=== PATIENT | female | born 1970 | race Caucasian/White ===

== ENCOUNTER 2019-03-23 00:19 | Inpatient (IN) ==
--- NOTE | 2019-03-23 00:36 | Emergency Department Note ---
ED Disposition Clinical Impression: Acute coronary syndrome Disposition: Still a Patient Condition on Discharge: Serious - Critical Care Critical Care Time: Yes Attestation: On 03/23/19, the high probability of a clinically significant, sudden or life threatening deterioration of the following system(s) required my full and direct attention, intervention and personal management. The time I documented below is in addition to time spent performing reported procedures but includes the following listed in this critical care notation. Total Critical Care Time: 40 Vital system(s) involved:: Circulatory Failure My critical care processes included: Assessment & monitoring of V/S, Initial and Re-exams, Data Review/Interpretation, Coordinating Care, Medication Orders and management, Documentation Medical Decision Making - Presley Inquiry Pt receiving controlled substance: No Vital Signs: 03/23/19 00:20 03/23/19 01:01 03/23/19 02:00 Pulse Rate [Right Brachial] 82 93 H 82 Respiratory Rate 18 18 20 Blood Pressure [Right Arm] 165/91 H 132/94 H 130/80 Blood Pressure Mean [Right Arm] 115 106 96 Blood Pressure Source [Right Arm] Automatic Cuff Automatic Cuff Automatic Cuff Blood Pressure Position [Right Arm] Sitting Sitting 02 Sat by Pulse Oximetry 98 97 99 Oxygen Delivery Method Room Air Room Air Room Air - Lab Data Lab Results 03/23/19 00:23: WBC 9.7, RBC 4.89, Hgb 13.9, Hct 44.8, MCV 91.6, MCH 28.4, MCHC 31.0 L, RDW 14.2, Plt Count 491 H, MPV 7.3 L, Neut % (Auto) 57.4, Lymph % (Auto) 33.0, [place] % (Auto) 5.7, Eos % (Auto) 3.3, Baso % (Auto) 0.8, Neut # (Auto) 5.6, Lymph # (Auto) 3.2, [place] # (Auto) 0.6, Eos # (Auto) 0.3, Baso # (Auto) 0.1 03/23/19 00:23: Sodium 142, Potassium 3.6, Chloride 104, Carbon Dioxide 30, Anion Gap 11.6, BUN 10, Creatinine 0.72, Estimated Creat Clear 86, Estimated GFR 86, Est GFR ( Amer) 105, Glucose 118 H, Calcium 9.0, Troponin I 0.26 H Result diagrams: 03/23/19 00:23 03/23/19 00:23 Orders (Tests/Meds): ED MEDICATIONS Generic Name Dose Route Start Last Admin Trade Name Freq PRN Reason Stop Dose Admin Diphenhydramine HCl 50 mg 03/23/19 02:40 Benadryl 50mg/1ml Vial IV 03/23/19 02:41 ONCE ONE Fentanyl Citrate 25 mcg 03/23/19 02:40 Fentanyl 100mcg/2ml Vial IV 03/24/19 02:41 Q3MINP PRN Moderate to Severe Pain Fentanyl Citrate 50 mcg 03/23/19 02:40 Fentanyl 100mcg/2ml Vial IV 03/24/19 02:41 Q3MINP PRN Moderate to Severe Pain Fentanyl Citrate 25 mcg 03/23/19 02:40 Fentanyl 250mcg/5ml Vial IV 03/24/19 02:40 Q3MINP PRN Moderate to Severe Pain Fentanyl Citrate 50 mcg 03/23/19 02:40 Fentanyl 250mcg/5ml Vial IV 03/24/19 02:40 Q3MINP PRN Moderate to Severe Pain Flumazenil 0.2 mg 03/23/19 02:40 Romazicon 0.1mg/Ml 5ml Vial IV 03/23/19 23:00 NEEDED PRN Sedation Heparin Sodium (Porcine) 10,000 unit 03/23/19 02:40 Heparin 1,000 Units/Ml 10ml Vial (Dispatcher Ship Pilot) IV 03/23/19 06:40 NEEDED PRN Emergency Box Optical Instrument Assembler Heparin Sodium/Sodium Chloride 3,000 unit 03/23/19 02:40 Heparin 1000 Units/500ml Ns (Dispatcher Ship Pilot) IV 03/23/19 02:41 ONCE ONE Sodium Chloride 1,000 mls @ 25 mls/hr 03/23/19 02:45 Sod Chlor 0.9% 1000ml Bag IV 03/24/19 02:40 .Q25H JANES Midazolam HCl 1 mg 03/23/19 02:40 Midazolam 2mg/2ml Vial IV 03/24/19 02:40 Q3MINP PRN Sedation Midazolam HCl 1 mg 03/23/19 02:40 Midazolam 1mg/Ml 5ml Vial IV 03/24/19 02:40 Q3MINP PRN Sedation Naloxone HCl 0.4 mg 03/23/19 02:40 Narcan 0.4mg/Ml Vial IV 03/24/19 02:40 Q5MINP PRN Decreased Respirations Nitroglycerin 800 mcg 03/23/19 02:40 Nitroglycerin 800mcg/8ml Syr (Dispatcher Ship Pilot) IV 03/24/19 02:40 NEEDED PRN Emergency Box Optical Instrument Assembler Verapamil HCl 2.5 mg 03/23/19 02:40 Verapamil 2.5mg/Ml 2ml Vial IV 03/23/19 02:41 ONCE ONE Discontinued Medications Generic Name Dose Route Start Last Admin Trade Name Najma PRN Reason Stop Dose Admin Aspirin 324 mg 03/23/19 00:33 03/23/19 00:38 Aspirin 81mg Chewable Tablet PO 03/23/19 00:34 324 mg ONCE ONE Administration Enoxaparin Sodium 60 mg 03/23/19 01:22 03/23/19 01:29 Lovenox 60mg/0.6ml Syringe SQ 03/23/19 01:23 60 mg ONCE ONE Administration Metoprolol Tartrate 25 mg 03/23/19 01:21 03/23/19 01:28 Lopressor 50mg Tablet PO 03/23/19 01:22 25 mg ONCE ONE Administration Morphine Sulfate 4 mg 03/23/19 01:23 03/23/19 01:29 Morphine 4mg/Ml Syringe IV 03/23/19 01:24 4 mg ONCE ONE Administration Nitroglycerin 0.4 mg 03/23/19 00:33 03/23/19 00:37 Nitrostat 0.4mg Sl Tablet SL 03/23/19 00:34 0.4 mg ONCE ONE Administration Nitroglycerin 1 gm 03/23/19 01:15 03/23/19 02:18 Nitroglycerin 1 Inch Oint Udp TD 03/23/19 01:16 Not Given ONCE ONE Nitroglycerin 0.4 mg 03/23/19 01:34 03/23/19 01:34 Nitrostat 0.4mg Sl Tablet SL 03/23/19 01:35 1 tab ONCE ONE Administration Ondansetron HCl 4 mg 03/23/19 01:24 03/23/19 01:30 Zofran 4mg/2ml Vial IV 03/23/19 01:25 4 mg ONCE ONE Administration Ticagrelor 180 mg 03/23/19 01:22 03/23/19 01:29 Brilinta 90mg Tablet PO 12/29/19 01:23 180 mg ONCE ONE Administration ORDERS Category Date Time Status XR chest 2V Stat Exams 03/23/19 00:27 Taken Troponin I Q3H Lab 03/23/19 03:30 Ordered Troponin I Q3H Lab 03/23/19 06:30 Ordered ECG Request by /Nse Stat Y 03/23/19 00:27 Ordered - Radiology Data #1 Image(s): Chest Image Reviewed: Yes I reviewed the patient's radiology image Preliminary Findings: Normal/NAD - ECG Data Tracing #1 EKG interpreted by Michael Cerrato MD: Rhythm: sinus Rate: 83 Adin: normal Ectopy: none Conduction: normal ST Segment Changes: Nonspecific, lead III T Wave Changes: Nonspecific, lead III Q Waves: none No prior EKGs available for comparison. Tracing #2 EKG interpreted by Michael Cerrato MD: Rhythm: sinus Rate: 78 Adin: normal Ectopy: none Conduction: normal ST Segment Changes: Nonspecific, inferior and lateral leads. T Wave Changes: Nonspecific, inferior and lateral leads Q Waves: none Suspicious changes for ischemia now present in inferior and lateral leads - Physician Consults Physician Consulted: Sana Time: 01:10 Reason -: Cardiology Eval/Care Comment/Response: EKG sent to Dr. Hood. Case discussed. Patient has ch anges in lead III on her EKG that are worrisome for ischemia, but only in this one lead. At this time does not meet criteria for STEMI. He requests that patient be given additional nitroglycerin, morphine, Lovenox, Brilinta, and metoprolol tartrate. Call him back after meds given to report on patient's pain level. Additional Consult: Sana Time: 02:10 Reason -: Cardiology Eval/Care Comment/Response: Second EKG sent. Discussed patient's current symptoms. He advises to call in the Dispatcher Ship Pilot team and he will perform a heart cath tonight. Additional Consult: Alberto Time: 02:17 Reason -: Admission - Reevaluation(s) Time: 01:39 Reevaluation #1: Anterior chest pain resolved after first nitroglycerin, but back pain still present, 5/10. Time: 02:10 Reevaluation #3: Pain in back remains 4/10. No anterior chest pain. - ARIELA Score for Non-Stemi Age of Patient: 40-49 years old Heart Rate: 70-89 bpm Systolic Blood Pressure: 160-199 mmHg Serum Creatinine: 0.40-0.79 mg/dl CHF [place] Class: I-No CHF Other Risk Factors: ST Segment Deviation Non-Stemi Risk Score: 76 General Adult HPI - General Chief complaint: Chest Pain Stated complaint: Cp Time Seen by Provider: 03/23/19 00:36 Mode of Arrival: Family Vehicle Limitations: No Limitations Description of Symptoms (Recalled from ER Triage Doc. by RN): Pt c/o cp that st ared last night, she reports that is hurts in her back when she takes a deep breath. NO SOA, or other symptoms reported at this time. - History of Present Illness HPI narrative: Complains of chest and thoracic back pain. She says it started on 03/21/2019 at about noon while she was doing some housework. It lasted for couple of hours and then went away. Pain returned yesterday morning 03/22/2019 and has been present all day long, continuous for approximately 16 hours. Denies shortness of breath, nausea, or diaphoresis. Pain goes into her thoracic back. It worsens when she lays down. She has an sensation in her arms like there is something running into her veins. No jaw pain. No pleuritic component. No leg pain or swelling. She does not have any known heart disease. She is a smoker. She does not have diabetes, hyperlipidemia, or hypertension. No known family history of heart disease. No recent hospitalizations or surgeries. She does not have a primary care provider. - Related Data Home Medications Medication Instructions Recorded Confirmed No Known Home Medications 03/23/19 03/23/19 Allergies Allergy/AdvReac Type Severity Reaction Status Date / Time No Known Allergies Allergy Verified 03/23/19 00:28 [facility] History - Hepatitis A Screen Drug use history?: No High risk sexual behaviors?: No History of sexually transmitted infection?: No Currently employed?: No Childcare worker?: No Do you have indoor plumbing?: Yes Do you have electricity?: Yes Attestation statement:: This patient has been screened for Hepatitis A risk factors. I have reviewed the patient's past medical history: Yes - Social History Smoking Status: Current every day smoker # Packs/Day (cigarettes): 1 Alcohol Intake: never Occupational Status: employed Housing: house ROS Obtained: Yes All systems reviewed & no additional complaints - Constitutional Constitutional: Denies fever(s) - Cardiovascular Cardiovascular: Reports chest pain, Denies diaphoresis, Denies edema, Reports radiating jaw, neck or arm pain - Respiratory Respiratory: No dyspnea, No coughing up blood, No pain on inspiration, No pain with cough - Gastrointestinal Gastrointestingal: Denies: abdominal pain, nausea, vomiting Physical Exam - General General appearance: alert, in no apparent distress - Head Head exam: atraumatic, normocephalic - Eye Eye exam: Present: normal appearance, EOMI - ENT ENT exam: Present: mucous membranes moist - Neck Neck exam: Present: normal inspection, trachea midline - Chest Chest inspection: Present: normal inspection, symmetric chest wall rise - Respiratory Respiratory exam: Present: normal lung sounds bilaterally. Absent: respiratory distress - Cardiovascular Cardiovascular exam: Present: regular rate, normal rhythm, normal heart sounds - Abdominal Exam Abdominal exam: Present: soft, normal bowel sounds. Absent: distention, tenderness, guarding - Extremities Exam Extremities exam: Present: normal inspection, full ROM. Absent: tenderness, calf tenderness - Neurological Exam Neurological exam: Present: alert, oriented X3 - Psychiatric Psychiatric exam: Present: normal affect, normal mood - Skin Skin exam: Present: warm, dry
[2019-03-23 00:52] LABS: Basophils # 0.1 K/mm3 (0-0.2); Basophils % 0.8 % (0.1-2.0); Eosinophils # 0.3 K/mm3 (0.0-0.4); Eosinophils % 3.3 % (0.1-12.0); Hematocrit 44.8 % (37.0-47.0); Hemoglobin 13.9 g/dL (12.2-16.2); Lymphocytes # 3.2 K/mm3 (0.7-4.5); Mean Corpuscular Volume 91.6 fl (81-99); Mean Platelet Volume 7.3 fl (7.4-10.4); Monocytes # 0.6 K/mm3 (0.1-1.0); Monocytes % 5.7 % (1.7-9.3); Neutrophils # 5.6 K/mm3 (1.8-7.8); Neutrophils % 57.4 % (37.0-80.0); Platelet Count 491 K/mm3 (142-424); Red Blood Count 4.89 M/mm3 (4.20-5.40); Red Cell Distribution Width 14.2 % (11.5-17.5); White Blood Count 9.7 K/mm3 (4.8-10.8)
[2019-03-23 01:02] LABS: Anion Gap 11.6 mEq/L (5-15)
--- NOTE | 2019-03-23 11:27 | Pharmacy Consult Notes ---
[facility] Pharmacy VTE Monitoring - Patient Demographics Admission date: 03/23/19 Report Date: 03/23/19 Time: 11:26 Allergies/Adverse Reactions: Patient Allergies No Known Allergies Allergy (Verified 03/23/19 00:28) Height: 1.6 m Weight: 60.923 kg Patient Problems: Current Active Problems Acute coronary syndrome (Acute) - VTE Risk Labs: VTE Related Lab Results Hgb 13.9 g/dL (12.2-16.2) 03/23/19 00:23 Hct 44.8 % (37.0-47.0) 03/23/19 00:23 Plt Count 491 K/mm3 (142-424) H 03/23/19 00:23 BUN 10 mg/dL (7-18) 03/23/19 00:23 Creatinine 0.72 mg/dL (0.55-1.02) 03/23/19 00:23 Estimated Creat Clear 86 mL/min (50-200) 03/23/19 00:23 VTE Score: 2 VTE Risk Level: Moderate Risk - Prophylaxis VTE Prophylaxis Ordered?: Yes Types of VTE Prophylaxis: TEDS Knee High, Pharmacological Location of Applied Device: Bilateral Lower Extremeties Pharmacologic Type: Other (BRILINTA) - VTE Diagnosis Confirmed Treatment or plan recommended: Continue Current Treatment
--- NOTE | 2019-03-23 11:30 | History & Physical Report ---
*Admission Date: 03/23/19 *Chief complaint: Angina *History of present illness: 49-year-old female who presented to the ER due to pain in her chest that radiated to her back. Had occurred initially starting on Sunday but then resolved. She was doing housework when it first occurred but resolved after resting. It recurred again last night prior to presentation and was not resolving so she came to the ER to get assessed. Of note she is a smoker and smokes a pack a day. On assessment in the ER she was found to have an elevation in her troponin and an EKG was obtained showing ST elevation in lead III. Repeat troponin was obtained with a delta from 0.2 to 17. Ceiling Installer was activated and the patient was taken for left heart cath due to ACS. Review of cath report shows that she received 4 drug-eluting stents in multiple vessels correcting most of her occlusions. Still has some small vessel disease that was non-amenable to intervention. Patient was transferred to [facility] for monitoring. On assessment this morning she is still fatigued from anesthesia. Telemetry with occasional PVCs. [facility] History I have reviewed the patient's past medical history: Yes *Have you ever received a pneumonia vaccine?: No *Have you received a flu vaccine this season?: No Other Surgeries: Yes: Cardiac Catheterization, Coronary Stent - *Social History Smoking Status: Current every day smoker Tobacco Type: cigarettes # Packs/Day (cigarettes): 2 Alcohol Intake: former Alcohol Intake Frequency:: other *Occupational Status:: employed Housing: house *Travel in the last 8 weeks: None Family Hx:: Unable to obtain Review of Systems - Review of Systems Review of systems:: pertinent systems reviewed and negative unless documented below Meds Home Medications Medication Instructions Recorded Confirmed Type No Known Home Medications 03/23/19 03/23/19 History Allergies Allergy/AdvReac Type Severity Reaction Status Date / Time No Known Allergies Allergy Verified 03/23/19 00:28 Exam Vital signs and Labs for Last 24 Hours: Temp Pulse Resp BP Pulse Ox 98.6 F 66 15 142/73 H 99 03/23/19 06:59 03/23/19 10:00 03/23/19 10:00 03/23/19 10:00 03/23/19 10:00 Laboratory Results - last 24 hr 03/23/19 00:23: WBC 9.7, RBC 4.89, Hgb 13.9, Hct 44.8, MCV 91.6, MCH 28.4, MCHC 31.0 L, RDW 14.2, Plt Count 491 H, MPV 7.3 L, Neut % (Auto) 57.4, Lymph % (Auto) 33.0, [place] % (Auto) 5.7, Eos % (Auto) 3.3, Baso % (Auto) 0.8, Neut # (Auto) 5.6, Lymph # (Auto) 3.2, [place] # (Auto) 0.6, Eos # (Auto) 0.3, Baso # (Auto) 0.1 03/23/19 00:23: Sodium 142, Potassium 3.6, Chloride 104, Carbon Dioxide 30, Anion Gap 11.6, BUN 10, Creatinine 0.72, Estimated Creat Clear 86, Estimated GFR 86, Est GFR ( Amer) 105, Glucose 118 H, Calcium 9.0, Troponin I 0.26 H 03/23/19 07:18: Troponin I 17.36 H I & O for Last 24 hours: Intake & Output 03/20/19 03/21/19 03/22/19 03/23/19 23:59 23:59 23:59 23:59 Weight 60.923 kg - Constitutional no acute distress, thin - *Routine HEENT Exam Head: Present: normocephalic Eye: Present: EOMI, PERRL ENT: Present: mucous membranes moist - *Routine Neck Exam Present: supple. Absent: lymphadenopathy - *Routine Respiratory Exam Present: CTA bilaterally - *Routine Cardiovascular Exam Present: RRR - *Routine Abdominal Exam Present: soft, normoactive bowel sounds. Absent: tenderness - *Routine Extremities Exam Absent: cyanosis, clubbing, edema - *Routine Skin Exam Present: warm. Absent: rash - *Routine Neurological Exam Present: alert, oriented X3 Assessment and Plan (1) Tobacco use disorder Current visit: Yes Status: Chronic Category: Medical Code(s): F17.200 - Nicotine dependence, unspecified, uncomplicated (2) Acute coronary syndrome Current visit: Yes Status: Acute Category: Medical Code(s): I24.9 - Acute ischemic heart disease, unspecified - Assessment and plan all Dx Assessment and Plan for all problems:: 49-year-old female who presented with STEMI and acute coronary syndrome. Taken emergently to the Ceiling Installer with placement of 4 stents. Initiated on goal- directed therapy with dual antiplatelet therapy and beta-julio. At this time given her blood pressure being softer, will hold on GENNY inhibitor. Started on 40 mg atorvastatin, if tolerates well will increase to maximal dose of high intensity statin. Discussed tobacco cessation and need for stopping smoking as she has extensive history and this is likely an underlying etiology for her coronary artery disease. Using nicotine patches while admitted. Patient additionally has not seen a doctor in over 10 years. Plan for close follow-up at time of discharge with our office and follow-up with cardiology as well. Monitor on telemetry overnight. Long she has no further events, plan for discharge in the morning.
[2019-03-24 06:06] LABS: Basophils # 0.1 K/mm3 (0-0.2); Basophils % 0.5 % (0.1-2.0); Eosinophils # 0.2 K/mm3 (0.0-0.4); Eosinophils % 2.5 % (0.1-12.0); Hematocrit 37.6 % (37.0-47.0); Hemoglobin 11.4 g/dL (12.2-16.2); Lymphocytes # 2.2 K/mm3 (0.7-4.5); Mean Corpuscular HGB Conc 30.3 g/dL (31.8-35.4); Mean Corpuscular Volume 91.3 fl (81-99); Mean Platelet Volume 7.3 fl (7.4-10.4); Monocytes # 0.6 K/mm3 (0.1-1.0); Monocytes % 6.9 % (1.7-9.3); Neutrophils # 5.8 K/mm3 (1.8-7.8); Neutrophils % 65.1 % (37.0-80.0); Platelet Count 379 K/mm3 (142-424); Red Blood Count 4.12 M/mm3 (4.20-5.40); Red Cell Distribution Width 14.4 % (11.5-17.5); White Blood Count 8.9 K/mm3 (4.8-10.8)
[2019-03-24 06:22] LABS: Anion Gap 13.2 mEq/L (5-15); Calcium 8.1 mg/dL (8.5-10.1); Chol/HDL Ratio 3.9 (1-3.5)
--- NOTE | 2019-03-24 08:12 | Consult Report ---
History of Present Illness Consult date: 03/24/19 Requesting physician: Deo Dominguez Consult reason: chest pain Chief complaint: STEMI Additional Medical History:: 1. Tobacco use, since age 16, 1ppd 2. STEMI, 02/2019 A[facility] results: ANGIOGRAPHIC RESULTS The left main artery Has an ostial greater than 90% stenosis in the distal to 40% tapering. The left anterior descending artery Has an ostial 40% stenosis mid vessel 40% stenoses with 40% stenoses in the diagonal artery. The circumflex artery Is a nondominant vessel and occluded after the first obtuse marginal artery. After stenting the artery was widely patent with normal flow into a large second obtuse marginal artery. A large ramus intermedius has a mid vessel 70% stenosis at a 2-1/2 mm segment The right coronary artery Is a dominant vessel and has proximal hazy concentric 70% stenosis. The posterior lateral branch is a large branch with a mid vessel 90% stenosis The [place] ventriculogram reveals Normal 60% The left ventricular end-diastolic pressure [address] elevation myocardial infarction involving the circumflex artery Successful stenting of the circumflex artery acute 100% occlusion reduced to 0% with one drug-eluting stent Critical life-threatening ostial left main stenosis reduced to 0% with a 4 mm x 8 mm stent postdilated to 20 danay with a 4.5 mm noncompliant balloon Severe disease in the proximal right coronary artery with successful stenting reducing the severe stenosis to 0% Severe stenosis in a posterior lateral branch reducing the stenosis to 0% with one drug-eluting stent Persistent moderate to severe stenosis in a large ramus intermedius Normal ejection fraction Normal left ventricular end-diastolic pressure PLAN 1. Brilinta 90 twice daily plus aspirin 81 mg a day for 1 year 2. LDL less than 55 3. Carvedilol plus GENNY inhibitors once hemodynamically stable to tolerate these medicines 4. Absolute abstinence and avoidance of all tobacco products 5. Cardiac rehabilitation 6. Echocardiography 7. Medical management for the ramus intermedius at this time Electronically signed by : Toy Hood, 03/23/2019 03:56:53 History of present illness: 49-year-old female who presented to the ER due to pain in her chest that radiated to her back. Had occurred initially starting on Sunday but then resolved. She was doing housework when it first occurred but resolved after resting. It recurred again last night prior to presentation and was not resolving so she came to the ER to get assessed. Of note she is a smoker and smokes a pack a day. On assessment in the ER she was found to have an elevation in her troponin and an EKG was obtained showing ST elevation in lead III. Repeat troponin was obtained with a delta from 0.2 to 17. Rivet Spinner was activated and the patient was taken for left heart cath due to ACS. Review of cath report shows that she received 4 drug-eluting stents in multiple vessels correcting most of her occlusions. Still has some small vessel disease that was non-amenable to intervention. Patient was transferred to [facility] for monitoring The above per Dr. Dominguez This AM pt is feeling fine without chest pain or back pain. She is anxious to go home. She has resolved to quit smoking. [facility] History *Have you ever received a pneumonia vaccine?: No *Have you received a flu vaccine this season?: No Other Surgeries: Yes: Cardiac Catheterization, Coronary Stent - *Social History Smoking Status: Current every day smoker Tobacco Type: cigarettes # Packs/Day (cigarettes): 2 Alcohol Intake: former Alcohol Intake Frequency:: other *Occupational Status:: employed Housing: house *Travel in the last 8 weeks: None Family Hx:: Unable to obtain Meds Home Medications Medication Instructions Recorded Confirmed Type No Known Home Medications 03/23/19 03/23/19 History Allergies Allergy/AdvReac Type Severity Reaction Status Date / Time No Known Allergies Allergy Verified 03/23/19 00:28 Review of Systems - Review of Systems Review of systems:: pertinent systems reviewed and negative unless documented below - *Cardiovascular Reports chest pain - *Respiratory Reports shortness of breath with activity, Denies cough - *Gastrointestinal Denies loose stools, Denies nausea, Denies vomiting - *Genitourinary Denies blood in urine - *Musculoskeletal Denies joint pain, Denies back pain - *Neurologic Denies dizziness, Denies fainting Exam Vital signs and Labs for Last 24 Hours: Temp Pulse Resp BP Pulse Ox 98.9 F 70 16 113/73 96 03/24/19 04:00 03/24/19 08:00 03/24/19 08:00 03/24/19 08:00 03/24/19 08:00 Laboratory Results - last 24 hr 03/23/19 07:18: Troponin I 17.36 H 03/24/19 05:42: WBC 8.9, RBC 4.12 L, Hgb 11.4 L, Hct 37.6, MCV 91.3, MCH 27.7, MCHC 30.3 L, RDW 14.4, Plt Count 379, MPV 7.3 L, Neut % (Auto) 65.1, Lymph % (Auto) 25.0, [place] % (Auto) 6.9, Eos % (Auto) 2.5, Baso % (Auto) 0.5, Neut # (Auto) 5.8, Lymph # (Auto) 2.2, [place] # (Auto) 0.6, Eos # (Auto) 0.2, Baso # (Auto) 0.1 03/24/19 05:42: Sodium 141, Potassium 4.2, Chloride 107, Carbon Dioxide 25, Anion Gap 13.2, BUN 11, Creatinine 0.66, Estimated Creat Clear 101, Estimated GFR 96, Est GFR ( Amer) 116, Glucose 100, Calcium 8.1 L, Triglycerides 91, Cholesterol 139 L, LDL Cholesterol 85, VLDL Cholesterol 18, HDL Cholesterol 36, Cholesterol/HDL Ratio 3.9 H I & O for Last 24 hours: Intake & Output 03/21/19 03/22/19 03/23/19 03/24/19 11:59 11:59 11:59 11:59 Intake Total 240 / 240 Balance 240 / 240 Weight 134 lb 5 oz 135 lb 1 oz - *Routine HEENT Exam Head: Present: normocephalic Eye: Present: EOMI, PERRL ENT: Present: mucous membranes moist - *Routine Neck Exam Present: supple. Absent: JVD, carotid bruit - *Routine Respiratory Exam Present: CTA bilaterally. Absent: accessory muscle use, rales, rhonchi, wheezes - *Routine Cardiovascular Exam Present: RRR. Absent: murmur, gallop, rubs - *Routine Abdominal Exam Present: soft. Absent: tenderness, distended, guarding - *Routine Extremities Exam Absent: edema, calf tenderness - *Routine Neurological Exam Present: alert, oriented X3, moving all extremities Assessment and Plan (1) Tobacco use disorder Current visit: Yes Status: Chronic Category: Medical Code(s): F17.200 - Nicotine dependence, unspecified, uncomplicated (2) Acute coronary syndrome Current visit: Yes Status: Acute Category: Medical Code(s): I24.9 - Acute ischemic heart disease, unspecified - Assessment and plan all Dx Assessment and Plan for all problems:: 1. Acute STEMI s/p multivessel stenting. On ASA and Brilinta. Clinically stable for discharge today. 2. Echo ordered 3. Continue GDT with metoprolol and lisinopril. 4. HLD, on atorvastatin. 5. OK for discharge home and follow up in one week. Off work until follow up.
--- NOTE | 2019-03-24 08:25 | Discharge Summary ---
General - General Admission date:: 03/23/19 Discharge date: 03/24/19 HPI HPI: 49-year-old female who presented to the ER due to pain in her chest that radiated to her back. Had occurred initially starting on Sunday but then resolved. She was doing housework when it first occurred but resolved after resting. It recurred again last night prior to presentation and was not resolving so she came to the ER to get assessed. Of note she is a smoker and smokes a pack a day. On assessment in the ER she was found to have an elevation in her troponin and an EKG was obtained showing ST elevation in lead III. Repeat troponin was obtained with a delta from 0.2 to 17. [employer] was activated and the patient was taken for left heart cath due to ACS. Review of cath report shows that she received 4 drug-eluting stents in multiple vessels correcting most of her occlusions. Still has some small vessel disease that was non-amenable to intervention. Patient was transferred to [facility] for monitoring. On assessment this morning she is still fatigued from anesthesia. Telemetry with occasional PVCs. Hospital Course Hospital Course: Patient was admitted, ruled in for myocardial infarction, taken to [employer] and results are noted below: IMPRESSION Acute ST elevation myocardial infarction involving the circumflex artery Successful stenting of the circumflex artery acute 100% occlusion reduced to 0% with one drug-eluting stent Critical life-threatening ostial left main stenosis reduced to 0% with a 4 mm x 8 mm stent postdilated to 20 danay with a 4.5 mm noncompliant balloon Severe disease in the proximal right coronary artery with successful stenting reducing the severe stenosis to 0% Severe stenosis in a posterior lateral branch reducing the stenosis to 0% with one drug-eluting stent Persistent moderate to severe stenosis in a large ramus intermedius Normal ejection fraction Normal left ventricular end-diastolic pressure PLAN 1. Brilinta 90 twice daily plus aspirin 81 mg a day for 1 year 2. LDL less than 55 3. Carvedilol plus GENNY inhibitors once hemodynamically stable to tolerate these medicines 4. Absolute abstinence and avoidance of all tobacco products 5. Cardiac rehabilitation 6. Echocardiography 7. Medical management for the ramus intermedius at this time Electronically signed by : Toy Hood, 03/23/2019 03:56:53 Patient did well after the procedure, this morning is doing well, no symptoms. She will be discharged home with medication as above and nicotine patch. Close follow-up in our office this week and then with cardiology next week. Objective Vital signs: Temp Pulse Resp BP Pulse Ox 98.9 F 70 16 113/73 96 03/24/19 04:00 03/24/19 08:00 03/24/19 08:00 03/24/19 08:00 03/24/19 08:00 Narrative: Pleasant, talkative, oropharynx clear, no JVD. Lungs clear, heart rate regular. Abdomen soft nontender. No edema or clubbing. Neurologically intact. No rash noted. Results Labs on day of discharge: Labs from last 24 hours 03/24/19 03/24/19 03/23/19 05:42 05:42 07:18 WBC 8.9 RBC 4.12 L Hgb 11.4 L Hct 37.6 MCV 91.3 MCH 27.7 MCHC 30.3 L RDW 14.4 Plt Count 379 MPV 7.3 L Neut % (Auto) 65.1 Lymph % (Auto) 25.0 [place] % (Auto) 6.9 Eos % (Auto) 2.5 Baso % (Auto) 0.5 Neut # (Auto) 5.8 Lymph # (Auto) 2.2 [place] # (Auto) 0.6 Eos # (Auto) 0.2 Baso # (Auto) 0.1 Sodium 141 Potassium 4.2 Chloride 107 Carbon Dioxide 25 Anion Gap 13.2 BUN 11 Creatinine 0.66 Estimated Creat Clear 101 Estimated GFR 96 Est GFR ( Amer) 116 Glucose 100 Calcium 8.1 L Troponin I 17.36 H Triglycerides 91 Cholesterol 139 L LDL Cholesterol 85 VLDL Cholesterol 18 HDL Cholesterol 36 Cholesterol/HDL Ratio 3.9 H DS: Diagnosis - Discharge Diagnosis (1) Tobacco use disorder Status: Chronic (2) Acute coronary syndrome Status: Acute Discharge Plan - Patient Discharge Instructions ACTIVITY: Continue current activity DIET: cardiac Patient Instructions: Angina, Cardiac Catheterization, Heart-Healthy Diet, DI for Angina, DI for Cardiac Catheterization, Heart Healthy Physical Activity - Follow up Plan Follow up with: Lara Michel APRN [Nurse Practitioner] - 03/28/19 Toy Hood MD [Staff Physician] - 1 week Disposition: Home, Self-Retirement Medications: Home Medications Medication Instructions Recorded Confirmed Type No Known Home Medications 03/23/19 03/23/19 History Aspirin [Aspirin 81mg EC Tab] 81 mg PO DAILY #30 tablet. 03/24/19 Rx Atorvastatin Calcium [Lipitor 40mg 40 mg PO HS #30 tab 03/24/19 Rx Tablet] Metoprolol Tartrate [Lopressor 25 mg PO BID #60 tab 03/24/19 Rx 25mg tablet] Nicotine [Nicotine Patch 21 mg TD DAILY #30 patch 03/24/19 Rx 21mg/24hrs] Ticagrelor [Brilinta 90mg Tablet] 90 mg PO BID #60 tab 03/24/19 Rx lisinopriL [Zestril 2.5mg Tablet] 2.5 mg PO DAILY #30 tab 03/24/19 Rx Prescriptions/Medication Reconciliation: New Atorvastatin Calcium [Lipitor 40mg Tablet] 40 mg PO HS #30 tab Nicotine [Nicotine Patch 21mg/24hrs] 21 mg TD DAILY #30 patch lisinopriL [Zestril 2.5mg Tablet] 2.5 mg PO DAILY #30 tab Aspirin [Aspirin 81mg EC Tab] 81 mg PO DAILY #30 tablet. Ticagrelor [Brilinta 90mg Tablet] 90 mg PO BID #60 tab Metoprolol Tartrate [Lopressor 25mg tablet] 25 mg PO BID #60 tab No Action No Known Home Medications - Problem Reconciliation Problems Reviewed?: Yes
--- NOTE | 2019-03-24 18:18 | Electrocardiograph Report ---
APPROVED REPORT Exam: Resting ECG HR:83 bpm ECG Measurements Heart Rate 83 AXES IN 120 P 68 QRSd 90 QRS -4 QT 376 T49 QTc 441 <Conclusion> Normal sinus rhythm Possible Left atrial enlargement Incomplete RBBB Abnormal ECG Electronically signed by : Mihir Zarco, 03/24/2019 18:17:51
--- NOTE | 2019-03-25 15:08 | Cardiology Report ---
APPROVED REPORT EXAM: Comprehensive 2D, Doppler, and color-flow Echocardiogram Waiter/Waitress Counter: Court Dasilva CRT Ht: 5 ft 3 in Wt: 135lbs BSA: 1.64 BP: 142/73 mmHg Indications: CP, Smoker, STEMI, stents 2D Dimensions LVOT 1.92 cm (M/F) 1.5-2.5 M-Mode Dimensions RVDd 1.85 cm (0.9-2.6)LVDd 4.43 cm (3.5-5.7) LVDs 3.57 cm (3.5-5.7)IVSd 0.85 cm (0.6-1.1) PWd 0.86 cm (0.6-1.1)EF (Teich) 40.20% FS 19.40% EDV (Teich) 89.10 mL ESV (Teich) 53.30 mL LV Diastology E/A Ratio 1.33 Mitral Valve MV A Velocity 70.00 (40-130 cm/s) Left Ventricle Left atrium is mildly enlarged, left ventricle is normal size, mild concentric left ventricular hypertrophy, visually estimated ejection fraction 45%, there is marked inferior and inferior basal wall hypokinesis. Diastolic parameters are inconclusive. Right Ventricle Right atrium and right ventricular normal size and contractility. Aortic Valve Aortic valve is minimally thickened and fibrosed. There is no aortic stenosis or aortic insufficiency. Mitral Valve Mitral valve is grossly normal, there is mild mitral regurgitation. Tricuspid Valve Tricuspid valve is grossly normal, there is mild tricuspid regurgitation. Tricuspid regurgitation jet velocity is inadequate for calculation of the right ventricular systolic pressure. Pulmonic Valve Pulmonic valve is poorly visualized. Great Vessels Aortic root is normal size. Pericardium No significant pericardial effusion noted. Conclusion 1. Mildly enlarged left atrium, normal left ventricular size, visually estimated ejection fraction 45% with segmental wall motion abnormality described above, diastolic parameters are inconclusive. 2. Mild mitral and tricuspid regurgitation. 3. No significant pericardial effusion noted. Electronically signed by : Winston Villalba, 03/25/2019 15:08:32
== END 2019-03-24 11:48 | disposition home or self-care (01) | DRG 246 ==
LOC: ER 00:19 → CATHLAB 02:47 → 2ND 05:23
PROVIDERS: ADMIT Internal Medicine Adolescent Medicine; ATTEND Internal Medicine Adolescent Medicine
CPT/HCPCS: 36415; 71020; 71046; 80048; 80061; 84484; 85025; 85347; 92928; 92929; 93005; 93306; 93458; 96374; 96375; 99152; 99153; 99284; C1725; C1769; C1876; C9600; C9601; J1644; J2405; Q9967

== ENCOUNTER 2019-04-16 09:53 | Outpatient (RCR) | payer OTHER, SELFPAY | END 2019-06-25 10:34 | disposition home or self-care (01) | LOC: PT 09:53 | PROVIDERS: Visit Provider Internal Medicine | DX: Z95.5 Presence of coronary angioplasty implant and graft (principal) | CPT/HCPCS: 93798 ==

== ENCOUNTER → 2020-04-06 10:05 | Outpatient (CLI) | payer OTHER, SELFPAY ==
--- NOTE | 2020-04-06 10:07 | CA_ITS ---
APPROVED REPORT EXAM: Comprehensive 2D, Doppler, and color-flow Echocardiogram Medic Technician: Shira Nuñez RCS, RVS Ht: 5 ft 4 in Wt: 150lbs BSA: 1.73 BP: 132/73 mmHg Indications: CM, Edema, Mitral regurgitation, smoker, murmur 2D Dimensions PWd 0.82 cm LVEF (Visual) 50.30 % LVDd 5.09 cm LA Volume 63.40 mL LVDs 3.78 cm LA Volume Index 36.60 mL/m2 (M/F) 16-34 Aortic Root 2.44 cm Left Atrium 3.86 cm LVOT 1.79 cm (M/F) 1.5-2.5 M-Mode Dimensions LA Diam 4.43 cm (1.9-4.0) LVDd 5.34 cm (3.5-5.7) Ao Diam 2.92 cm (2.0-3.7) LVDs 3.63 cm (3.5-5.7) IVSd 0.84 cm (0.6-1.1) PWd 1.06 cm (0.6-1.1) EF (Teich) 59.70% EPSs 0.88 cm FS 32.00% EDV (Teich) 137.70 mL ESV (Teich) 55.50 mL LV Diastology E Decel Time 243.00 (160-240 msec) E/A Ratio 1.96 MED E' 7.40 (< 7 cm/sec) MED A' 8.50 cm/s E'/MED E' Ratio 15.58 (>14) LAT E' 9.50 (<10 cm/sec) LAT A' 3.20 cm/s E/LAT E' Ratio 12.14 (>14) Pulm Vein s 39.00 cm/sec Pulm Vein d 20.00 cm/sec Ar-A Duration 143.00 msec Aortic Valve AI PHT 680.00 ms AO Peak GR. 7.50 mmHg Mitral Valve MV A Velocity 59.00 (40-130 cm/s) E/A Ratio 1.96 MV Decel. Time 243.00 (160-240 ms) Tricuspid Valve TR P. Velocity 241.00 cm/s RAP Estimate 10.00 mmHg RVSP 33.30 mmHg Left Ventricle Left atrium is normal size, left ventricle is normal size, there is no concentric left ventricular hypertrophy, visually estimated ejection fraction 55% with no regional wall motion abnormality, diastolic parameters are inconclusive. Right Ventricle Right atrium and right ventricular normal size and contractility. Atria Intra-atrial septum is intact, there is no color flow across the interatrial septum. Aortic Valve Aortic valve is minimally thickened and fibrosed, there is no aortic stenosis, there is mild aortic insufficiency. Mitral Valve Mitral valve is grossly normal, there is trace mitral regurgitation. Tricuspid Valve Tricuspid valve grossly normal, there is trace tricuspid regurgitation. Pulmonic Valve Pulmonic valve is poorly visualized. Great Vessels Aortic root is normal size. Pericardium No significant pericardial effusion noted. Conclusion 1. Normal left ventricular size, preserved left ventricular systolic function, visually estimated ejection fraction 55% with no regional wall motion abnormality, diastolic parameters are inconclusive. 2. Minimally thickened and calcified aortic valve without aortic stenosis, there is mild aortic insufficiency. 3. No significant pericardial effusion noted. Electronically signed by : Winston Villalba, 04/07/2020 06:07:20
== END ==
PROVIDERS: Visit Provider Urology
DX: R60.9 Edema, unspecified (principal); I42.9 Cardiomyopathy, unspecified; E78.5 Hyperlipidemia, unspecified; F17.200 Nicotine dependence, unspecified, uncomplicated; I10 Essential (primary) hypertension; I25.10 Atherosclerotic heart disease of native coronary artery without angina pectoris
CPT/HCPCS: 93306

== ENCOUNTER 2020-04-14 09:03 | Emergency (ER) | payer OTHER, SELFPAY ==
[2020-04-14 09:04] VITALS: BP 104/65; PULSE 74; RESP 19; TEMP 36.6; O2SAT 98; BMI 25.2
--- NOTE | 2020-04-14 09:31 | [facility].EDUTC ---
[facility] Disposition Clinical Impression: Peripheral edema CAD (coronary artery disease) Qualifiers: Coronary Disease-Associated Artery/Lesion type: unspecified vessel or lesion type [place] vs. transplanted heart: [place] heart Associated angina: angina presence unspecified Qualified Code(s): I25.10 - Atherosclerotic heart disease of [place] coronary artery without angina pectoris Disposition: Home, Self-Care Condition on Discharge: Good Instructions: DI for Peripheral Edema -- Bilateral, Low-Sodium Diet Additional Instructions: Eat a low sodium diet. Aim to take in less than 2000 mg of sodium per day. Rest and elevate your legs as much time as tolerated. Follow up with Dr. Hood. I called his office and you have an appointment there on Apr.26 at 2:00 pm. Increaese the lasix, but continue your other medications as you have been taking them. GO TO THE ER FOR ANY WORSENING SYMPTOMS OR CONCERNS Prescriptions: Furosemide [Lasix 40mg tab] 40 mg PO DAILY #14 tab Transmission Status: Received by [facility] Referrals: PCP,No [Primary Care Provider] - Forms: Work/School Release Time of Disposition: 10:12 Medical Decision Making - Medical Records Medical records reviewed: No: I reviewed the patient's medical records. - [place] Inquiry Pt receiving controlled substance: No Vital Signs: 04/14/20 09:04 04/14/20 10:50 Temperature 97.8 F 97.8 F Temperature Source Oral Oral Pulse Rate 74 Pulse Rate [Right] 74 Respiratory Rate 19 19 Blood Pressure 104/65 L Blood Pressure [Right Arm] 104/65 L Blood Pressure Mean [Right Arm] 78 02 Sat by Pulse Oximetry 98 - Lab Data Lab Results 04/14/20 09:49: Sodium 135 L, Potassium 4.2, Chloride 103, Carbon Dioxide 29, Anion Gap 7.2, BUN 11, Creatinine 0.80, Estimated Creat Clear 95, Estimated GFR 76, Est GFR ( Amer) 92, Glucose 89, Calcium 9.0 Result diagrams: 04/14/20 09:49 Medical Decision Narrative: Dr. Hood's office was notified of this patient. A f/u appt was made for her there on Apr.26 at 1400. [facility] HPI - General Stated complaint: painful b/l leg swelling Time Seen by Provider: 04/14/20 09:31 Mode of Arrival: Ambulatory Source of Information: Patient Description of Symptoms (Recalled from Triage Doc. by RN): pt c/o bilateral legs swelling x 1 week HEENT Symptoms (Recalled from RN notes): No Resp Symptoms (Recalled from RN notes): No Skin Symptoms (Recalled from RN notes): Yes MS Symptoms (Recalled from RN notes): No Functional Status (Recalled from RN notes): wnl - History of Present Illness Provider Complaint: She states that she has been having bilateral leg swelling for some time now. She sees Dr. Hood for cardiology (hx cad). She states that around 2 weeks ago she had an echocardiogram done and it was reported that it was ok. She was put on lasix 20 mg daily for swelling. She denies that it is working. - Related Data Previous Rx's Medication Instructions Recorded Aspirin [Aspirin 81mg EC Tab] 81 mg PO DAILY #30 tablet. 03/24/19 Atorvastatin Calcium [Lipitor 40mg 40 mg PO HS #30 tab 03/24/19 Tablet*] Nicotine [Nicotine Patch 21 mg TD DAILY #30 patch 03/24/19 21mg/24hrs] lisinopriL [Zestril 2.5mg Tab] 2.5 mg PO DAILY #30 tab 03/24/19 furosemide 20 mg tablet 20 mg PO DAILY #30 tab 03/24/20 clopidogrel 75 mg tablet 75 mg PO DAILY #30 tab 04/02/20 metoprolol succinate 25 mg 25 mg PO DAILY #30 tab 04/02/20 tablet,extended release 24 hr Furosemide [Lasix 40mg tab] 40 mg PO DAILY #14 tab 04/14/20 Allergies Allergy/AdvReac Type Severity Reaction Status Date / Time No Known Allergies Allergy Verified 04/14/20 09:27 - Worker's Comp Is this a Worker's Comp case?: No Is this an [facility] Worker's Comp?: No Is this a [place] Worker's Comp?: No H History - Hepatitis A Screen Drug use history?: No High risk sexual behaviors?: No History of sexually transmitted infec
[2020-04-14 10:14] LABS: Anion Gap 7.2 mEq/L (5-15); Blood Urea Nitrogen 11 mg/dl (7-17); Carbon Dioxide 29 mmol/L (22.0-30.0); Chloride 103 mmol/L (98-107); Creatinine Clearance Estimated 95 mL/min (50-200); Estimated Glomerular Filt Rate 76 ml/min (>60); GFR (African American) 92 ML/MIN (>60); Glucose 89 mg/dl (74-100); Potassium 4.2 mmoL/L (3.5-5.1); Sodium 135 mmol/L (136-145)
[2020-04-14 10:50] VITALS: BP 104/65; PULSE 74; RESP 19; TEMP 36.6; O2SAT 98
== END 2020-04-14 10:50 | disposition home or self-care (01) ==
PROVIDERS: Emergency Provider Nurse Practitioner Family
DX: R60.0 Localized edema (principal); M79.604 Pain in right leg; M79.605 Pain in left leg; I25.10 Atherosclerotic heart disease of native coronary artery without angina pectoris; I10 Essential (primary) hypertension; I25.2 Old myocardial infarction; E78.5 Hyperlipidemia, unspecified; Z79.899 Other long term (current) drug therapy
CPT/HCPCS: 80048; 99202; G0463

== ENCOUNTER 2024-10-08 11:55 | Outpatient (CLI) | payer OTHER, SELFPAY ==
--- OUTSIDE RECORDS SUMMARY | 2024-10-08 11:58 | XMS_ITS | Data Portability ---
Author Organization [facility] Address [address] [place] [address] Care Team Providers Care Clerk Travel Reservations Name Role Phone RONEY HOOD Ultra Sound Technician [phone] Assessment Encounter Date Assessment Date Assessment LastModified by Organization Details LastModified Time 03/24/2022 03/24/2022 negative, pcr covid, check ekg, note today and tomorrow [email or web address] Not available 03/24/2022 11:33:04 Plan of Treatment Reminders Order Date Submit Date Provider Last Modified By Organization Details Last Modified Time Details Appointments None recorded. Lab rapid strep group A, throat 2023 [facility], [address] [place] [address], [address], 4 11:32:16 rapid SARS CoV + SARS CoV 2 Ag, QL IA, respiratory specimen 2023 [facility], [address] [place] [address], [address], 4 11:32:29 rapid flu (A+B) 2023 024 [facility], [address] [place] [address], [address], 4 11:32:04 rapid strep group A, throat 2023 024 [facility], [address] [place] [address], [address], 4 16:48:38 rapid flu (A+B) 2023 024 [facility], [address] [place] [address], [address], 4 16:48:38 rapid flu (A+B) [address], [address] [place] [address] , [place], [address], 3 08:31:21 rapid SARS CoV + SARS CoV 2 Ag, QL IA, respiratory specimen [address], [address] [place] [address] , [place], [address], 3 08:31:21 rapid strep group A, throat [address], [address] [place] [address] , [place], [address], 3 08:31:21 rapid SARS CoV + SARS CoV 2 Ag, QL IA, respiratory specimen [address], [address] [place] [address] , [place], [address], 2 16:01:10 rapid flu (A+B) [address], [address] [place] [address] , [place], [address], 2 16:01:10 SARS CoV 2 RNA (COVID-19), QL, 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 Procedures None recorded. Surgeries None recorded. Imaging electrocard iogram [address], [address] [place] [address] , [place], [address], 2 16:01:10 Medication Orders amoxicillin 500 mg tablet 2023 024 [facility], [address] [place] [address] [address] [place], [place], [id number], 4 10:51:22 Bromfed DM 2 mg-30 mg-10 mg/5 mL oral syrup [address] [facility], [address] [place] [address] [address], [id number], 4 15:52:59 fluticasone propionate 50 mcg/actuati on nasal spray,suspe nsion 2022 023 [facility], [address] [place] [address] [address], [place], [id number], 4 10:50:14 Medrol (Du) 4 mg tablets in a dose pack [address], [address], 15:52:52 Zithromax Z-Du 250 mg tablet [address], [address], 15:52:41 albuterol sulfate HFA 90 mcg/actuati on aerosol inhaler [address], [address], 15:55:56 Patient TargetsNo targets recorded. Patient Instructions Encounter Date Encounter Id Patient Instructions Last Modified By Organization Details Last Modified Time 10/16/2019 [id number] smoking cessatio n counseling, greater than 3 minutes up to 10 minutes* [email or web address] Not available 10/16/2019 17:00:34 See HPI Encourag e otc herbal options Will check with antenna machine operator regarding starting SSRI/SNRI Encourage smoking cessation Rto for AWE Not available 10/16/2019 17:00:45 Tobacco use discouraged. Techniques for quitting smoking discussed including pharmaceuticals (Nicotine patches, gum, Zyban, and Chantix) and behavioral therapy (Hunter Benito). Immediate and jail cardiovascular and respiratory benefits of smoking cessation discussed. Lung cancer risk reduction also discussed. [email or web address] Not available 10/16/2019 17:01:37 03/24/2022 [id number] All questions answered and pt/guardian happy with treatment plan. Call with changes RTC or ED if symptoms change or worsen Keep next interval checkup Cont. chronic meds as prescribed Chronic conditions are stable Discussed natural and expected course of this diagnosis and need to alert the office if symptoms do not follow expected course or if any worsens [email or web address] Not available 03/24/2022 11:54:01 07/05/2022 [id number] All questions answered and pt/guardian satisfied with treatment plan. Call with changes RTC or ED if symptoms change or worsen Keep next interval checkup Cont. chronic meds as prescribed Chronic conditions are stable Discussed natural and expected course of this diagnosis and need to alert the office if symptoms do not follow expected course or if any worsens [email or web address] Not available 07/05/2022 15:04:25 Reason for Referral None Reported. Results Created Date Observation Date Name Description Value Unit Range Abnormal Flag Note LastModifiedBy Organization Detail LastModifiedTime 10/16/19 20 10/17/2019 lh + FSH, serum LH 53.6 mIU/m L Adult Femal e: Folli cular phase 2.4 - 12.6 Ovula tion phase 14.0 - 95.6 Lutea l phase 1.0 - 11.4 Postm enopa usal 7.7 - 58.5 Not Available [facility] [address] [place], [address], 10/17/2019 09:12:36 10/16/19 20 10/17/2019 lh + FSH, serum FSH 77.1 mIU/m L Adult Femal e: Folli cular phase 3.5 - 12.5 Ovula tion phase 4.7 - 21.5 Lutea l phase 1.7 - 7.7 Postm enopa usal 25.8 - 134.8 Not Available [facility] [address] [place], [address], 10/17/2019 09:12:36 10/16/19 20 10/17/2019 estra diol, serum estradiol <5.0 pg/mL Adult Femal e: Folli cular phase 12.5 - 166.0 Ovula tion phase 85.8 - 498.0 Lutea l phase 43.8 - 211.0 Postm enopa usal <6.0 - 54.7 Pregn zari 1st trime ster 215.0 - >4300 .0 Rebekah ECLIA metho dolog y Not Available [facility] [address] [facility], [place], [address], 10/17/2019 09:12:36 10/16/19 20 10/17/2019 TSH, ultra -sens itive , serum TSH 1.250 uIU/m L 0.450- 4.500 Not Available [facility] [address] [facility], [place], [address], 10/17/2019 09:12:37 03/24/20 22 03/25/2022 SARS- COV-2 , STAN sars-cov-2, STAN Not Detect ed not detect ed This nucle ic acid ampli ficat ion test was devel oped and its perfo rmanc e ok cteri stics deter mined by [facility]. Nucle ic acid ampli ficat ion tests inclu de RT-PC R and TMA. This test has not been FDA clear ed or appro radha. This test has been autho rized by FDA under an Emerg ency Use Autho rizat ion (EUA) . This test is only autho rized for the durat ion of time the decla ratio n that circu mstan dena exist justi fying the autho rizat ion of the emerg ency use of in vitro diagn ostic tests for detec tion of SARS- CoV-2 virus and/o r diagn osis of COVID -19 infec tion under secti on 564(b )(1) of the Act, 21 U.S.C . 360bb b-3(b ) (1), unles s the autho rizat ion is termi nated or revok ed soone r. When diagn ostic testi ng is negat zenaida, the possi bilit y of a false negat zenaida resul t shoul d be consi dered in the lorrie xt of a patie nt's recen t expos ures and the prese nce of clini loulou signs and sympt oms consi stent with COVID -19. An indiv idual witho ut sympt oms of COVID -19 and who is not renée ing SARS- CoV-2 virus would expec t to have a negat zenaida (not detec talia) resul t in this assay . Not Available [facility] [address] [facility], [place], [address], 03/25/2022 15:08:14 03/24/20 22 03/25/2022 SARS- COV-2 , STAN sars-cov-2, STAN 2 day tat Perfor med Not Available [facility] [address] [facility], [place], [address], 03/25/2022 15:08:14 03/24/20 22 03/24/2022 rapid flu (A+B) Flu negati ve Not Available [address] , [place], [address], 03/24/2022 11:50:18 03/24/20 22 03/24/2022 rapid flu (A+B) Type Both A & B Not Available [address] , [place], [address], 03/24/2022 11:50:18 03/24/20 22 03/24/2022 rapid SARS CoV + SARS CoV 2 Ag, QL IA, respi rator y speci men SARS CoV antigen Negati ve Not Available [address] , [place], [address], 03/24/2022 11:50:11 07/06/19 23 07/05/2022 rapid strep group A, throa t Strep negati ve Not Available [address] , [place], [address], 07/05/2022 14:01:12 07/06/19 23 07/05/2022 rapid strep group A, throa t Culture No Not Available [address] , [place], [address], 07/05/2022 14:01:12 07/06/19 23 07/05/2022 rapid SARS CoV + SARS CoV 2 Ag, QL IA, respi rator y speci men SARS CoV antigen Negati ve Not Available [address] , [place], [address], 07/05/2022 14:01:11 07/06/19 23 07/05/2022 rapid flu (A+B) Flu positi ve Not Available [address] , [place], [address], 07/05/2022 14:01:09 07/06/19 23 07/05/2022 rapid flu (A+B) Type B Not Available [address] , [place], [address], 07/05/2022 14:01:09 01/03/20 24 01/03/2024 rapid strep group A, throa t Strep positi ve Not Available [address], [address], 01/03/2024 16:00:35 01/03/20 24 01/03/2024 rapid strep group A, throa t Culture No Not Available [address], [address], 01/03/2024 16:00:35 01/03/20 24 01/03/2024 rapid flu (A+B) Flu positi ve Not Available [address], [address], 01/03/2024 16:01:40 01/03/20 24 01/03/2024 rapid flu (A+B) Type B Not Available [address], [address], 01/03/2024 16:01:40 02/25/20 24 02/25/2024 rapid flu (A+B) Flu negati ve Not Available [address], [address], 02/25/2024 10:51:39 02/25/20 24 02/25/2024 rapid flu (A+B) Type Both A & B Not Available [address], [address], 02/25/2024 10:51:39 02/25/20 24 02/25/2024 rapid SARS CoV + SARS CoV 2 Ag, QL IA, respi rator y speci men SARS CoV antigen Positi ve Not Available [address], [address], 02/25/2024 10:51:25 02/25/20 24 02/25/2024 rapid strep group A, throa t Strep negati ve Not Available [address], [address], 02/25/2024 10:41:02 02/25/20 24 02/25/2024 rapid strep group A, throa t Culture No Not Available [address], [address], 02/25/2024 10:41:02 03/24/20 22 03/24/2022 elect rocar diogr am No observ ation record ed. [address] , [place], [address], 03/24/2022 15:24:00 03/24/20 22 03/24/2022 elect rocar diogr am No observ ation record ed. BARCODE Not Available 2021 13:38:21 Result Notes None recorded. Problems Name Problem SNOMED Code Status Onset Date Resolution Date Notes Provider Name and Address Organization Details Recorded Time Myocardial infarction 66838436 Active 2018 Jodyfarheen Garcia null, [place] - [facility] 0 15:16:56 Hypertensive disorder 15805440 Active 2019 Jodyfarheen Garcia null, [place] - [facility] 0 15:17:06 Hypercholester olemia 42892508 Active 2019 Jodyaranza Garcia null, [place] - [facility] 0 15:17:13 Menopausal symptom 12823832 Active 2019 Sridevi Elpidio, WELDING EQUIPMENT SALES REPRESENTATIVE [address], [place], [address], [place] - [facility] 0 16:58:12 Cigarette smoker 09130224 Active 2019 Sridevi Magallanes, WELDING EQUIPMENT SALES REPRESENTATIVE [address], [place], [address], [place] - [facility] 0 17:01:37 Upper respiratory infection 50293749 Active 2021 Andre Antunez PA-C [address], [place], [address], [place] - [facility] 2 11:55:35 Chest discomfort 492933025 Active 2021 Andre Antunez PA-C [address], [place], [address], [place] - [facility] 2 12:48:56 Influenza caused by Influenza B virus 91970362 Active 2022 Andre Antunez PA-C [address], [place], [address], [place] - [facility] 3 15:03:07 Problem Notes None recorded. Procedures Surgical History Date Name Laterality Status Provider Name and Address Organization Details Recorded Time 03/22/20 19 placement of stent in cardiac conduit completed Jody Garcia YESS[place] - [facility] 10/16/2019 15:25:16 09/24/19 15 Date of Last Pap Smear completed Jody JUAN - [facility] 10/16/2019 09:05:36 07/23/18 93 aspiration of ovarian cyst completed Jody Garcia [place] - [facility] 10/16/2019 09:07:11 07/23/18 93 ligation of bilateral fallopian tubes completed Jody Garcia [place] - [facility] 10/16/2019 09:07:26 cardiac catheterization completed Cally Varma [place] - [facility] 01/03/2024 15:59:19 Imaging Results None recorded. Procedure Notes None recorded. Medical Equipment None Reported. Allergies No known drug allergies Medications Name Sig Start Date Stop Date Status Note LastModified by Organization Details LastModified Time amoxicill in 500 mg capsule TAKE ONE CAPSULE BY MOUTH TWICE DAILY -- FINISH ALL MEDICINE -- 02/24 completed Not Available Not Available Not Available furosemid e 40 mg tablet TAKE ONE TABLET BY MOUTH EVERY DAY active Not Available Not Available No t Available atorvasta tin 40 mg tablet TAKE ONE TABLET BY MOUTH EVERY DAY AT BEDTIME active Not Available Not Available No t Available Bromfed DM 2 mg-30 mg-10 mg/5 mL oral syrup Take 10 mL every 4 hours by oral route. 01/02 completed Not Available Not Available Not Available azithromy radha 250 mg tablet TAKE 2 TABLETS (500 MG) BY ORAL ROUTE ONCE DAILY FOR 1 DAY THEN 1 TABLET (250 MG) BY ORAL ROUTE ONCE DAILY FOR 4 DAYS 01/02 completed Not Available Not Available Not Available Diflucan 150 mg tablet take 1 tablet (150 mg) by oral route, then repeat in 3 days 11/24 completed Diflucan 150 mg oral tablet;P rescribe Status: Prescrib ed on: 09/24/19 15 4:03PM;D iscontin ued Status: Disconti nued on: 11/25/19 15 11:35AM; User: Reginaldo Camacho on: 10/01/19 15;Pharm acyVerif ied: 09/24/19 15 4:03PM Not Available Not Available Not Available clopidogr el 75 mg tablet TAKE ONE TABLET BY MOUTH EVERY DAY active Not Available Not Available No t Available aspirin 81 mg tablet,de layed release TAKE ONE TABLET BY MOUTH EVERY DAY active Not Available Not Available No t Available amoxicill in 500 mg tablet Take 1 tablet twice a day by oral route for 10 days. 02/24 completed Not Available Not Available Not Available nicotine 21 mg/24 hr daily transderm al patch apply 1 PATCH topicall y ONCE DAILY 03/24 completed Not Available Not Available Not Available Provera 10 mg tablet take 1 tablet (10 mg) by oral route once daily for 10 days 12/24 completed Provera 10 mg oral tablet;P rescribe Status: Prescrib ed on: 12/02/19 15 2:16PM;U ser: youngk;E st. Completi on: 12/25/19 15;Indic ation: Secondar y Amenorrh ea - (10.6260 02);Phar Justina fied: 12/02/19 15 2:16PM Not Available Not Available Not Available furosemid e 20 mg tablet TAKE ONE TABLET BY MOUTH EVERY DAY 03/24 completed Not Available Not Available Not Available metoprolo l succinate ER 25 mg tablet,ex tended release 24 hr TAKE ONE TABLET BY MOUTH EVERY DAY active Not Available Not Available No t Available methylpre dnisolone 4 mg tablets in a dose pack Take 1 dose pk by oral route. 01/02 completed Not Available Not Available Not Available albuterol sulfate HFA 90 mcg/actua tion aerosol inhaler Inhale 2 puffs every 4 hours by inhalati on route. 01/02 completed Not Available Not Available Not Available fluticaso ne propionat e 50 mcg/actua tion nasal spray,tiffanie pension instill 1 SPRAY IN EACH NOSTRIL EVERY DAY 02/24 completed Not Available Not Available Not Available lisinopri l 2.5 mg tablet TAKE ONE TABLET BY MOUTH EVERY DAY active Not Available Not Available No t Available escitalop carlos 10 mg tablet TAKE ONE TABLET BY MOUTH EVERY DAY 03/24 completed Not Available Not Available Not Available buprenorp lc 8 mg-naloxo ne 2 mg sublingua l tablet DISSOLVE 1 & 1/2 TABLET UNDER THE TONGUE ONCE DAILY active Not Available Not Available No t Available metoprolo l tartrate 25 mg tablet 10/15 completed Not Available Not Available Not Available Brilinta 90 mg tablet TAKE ONE TABLET BY MOUTH TWICE DAILY 03/24 completed Not Available Not Available Not Available Vitals Date Recorded Body height Body mass index (BMI) Body weight Body temperature Heart rate Oxygen saturation Oxygen saturation in Arterial blood by Pulse oximetry Respiratory rate Systolic And Diastolic Provider Name and Address Organization Details Last Updated DateTime 3 162.56 cm 17.8 kg/m2 27894.8 1 g 99.7 [degF] 88 /min 98 % 98 % 18 /min 120/68 mm[Hg] Tila Yeung [place] - [facility] 3 14:02:11 Date Recorded Body height Body mass index (BMI) Body weight Systolic And Diastolic Provider Name and Address Organization Details Last Updated DateTime 10/16/2019 160.02 cm 25.3 kg/m2 57780.71 g 106/76 mm[Hg] Jody Garcia [place] - [facility] 10/16/2019 15:29:05 Date Recorded Body height Respiratory rate Body mass index (BMI) Body weight Body temperature Heart rate Oxygen saturation Oxygen saturation in Arterial blood by Pulse oximetry Systolic And Diastolic Provider Name and Address Organization Details Last Updated DateTime 4 162.56 cm 18 /min 21.5 kg/m2 33539.7 5 g 98 [degF] 84 /min 98 % 98 % 118/64 mm[Hg] Cally Kojo [place] - [facility] 4 15:55:40 Date Recorded Body height Heart rate Body temperature Body mass index (BMI) Body weight Oxygen saturation Oxygen saturation in Arterial blood by Pulse oximetry Respiratory rate Systolic And Diastolic Provider Name and Address Organization Details Last Updated DateTime 4 162.56 cm 106 /min 98 [degF] 21.8 kg/m2 94386.9 3 g 98 % 98 % 16 /min 150/88 mm[Hg] Yris Crain [place] - [facility] 4 10:49:23 Date Recorded Body height Body mass index (BMI) Body weight Body temperature Respiratory rate Heart rate Oxygen saturation Oxygen saturation in Arterial blood by Pulse oximetry Systolic And Diastolic Provider Name and Address Organization Details Last Updated DateTime 2 162.56 cm 18.6 kg/m2 05019.7 8 g 98.5 [degF] 16 /min 68 /min 98 % 98 % 130/80 mm[Hg] Tila Yeung [place] - [facility] 2 10:47:28 Social History Question Answer Notes LastModified by Organizat ion Details LastModified Time Tobacco Smoking Status Current Every Day Smoker Vape Tila arias, [place] - [facility] 03/24/2022 10:43:44 Do You Have An Advance Directive? No Information not available 01/03/2024 Are You Blind Or Do You Have Difficulty Seeing? No Information not available 03/24/2022 What Is Your Level Of Caffeine Consumption? Occasional [email or web address] Information not available 10/16/2019 How Much Tobacco Do You Chew? None [email or web address] Information not available 10/16/2019 Are You Deaf Or Do You Have Serious Difficulty Hearing? No [email or web address] Information not available 03/24/2022 What Type Of Diet Are You Following? REGULAR [email or web address] Information not available 03/24/2022 What Is The Highest Grade Or Level Of School You Have Completed Or The Highest Degree You Have Received? [id number] [email or web address] Information not available 03/24/2022 Have There Been Any Changes To Your Family Or Social Situation? No Information not available 01/03/2024 What Is The Fluoride Status Of Your Home? Unknown Information not available 01/03/2024 Live Alone Or With Others? With Others Information not available 10/16/2019 Do You Have A Medical Power Of Voice Engineer? No Information not available 01/03/2024 What Was The Date Of Your Most Recent Tobacco Screening? 02/25/2024 [email or web address] Information not available 02/25/2024 How Many Children Do You Have? 2 [email or web address] Information not available 10/16/2019 What Is Your Current Pack Years? 10-19packyears Information not available 01/03/2024 What Is Your Relationship Status? Information not available 03/24/2022 Are You Sexually Active? No Information not available 03/24/2022 Do You Have Smoke And Carbon Monoxide Detectors In Your Home? Yes Information not available 01/03/2024 At What Age Did You Start Smoking Tobacco? 16 Information not available 01/03/2024 How Much Tobacco Do You Smoke? 1 PPD Information not available 01/03/2024 Has Tobacco Cessation Counseling Been Provided? No [email or web address] Information not available 03/24/2022 How Many Years Have You Smoked Tobacco? 36 Stopped In 2023 Information not available 01/03/2024 Do You Have Difficulty Walking Or Climbing Stairs? No [email or web address] Information not available 03/24/2022 Do You Want To Talk About Contraception Or Prevention During Your Visit Today? No - I Do Not Want To Talk About Contraception Today Because I Am Here For Something Else [email or web address] Information not available 03/24/2022 How Many Years Have You Used E-cigarettes Or Vape? 1 Information not available 01/03/2024 Do You Have Any Future Plans To Get ? No, I Don't Want To Become [email or web address] Information not available 07/05/2022 Sex: Female Functional Status Question Answer Note LastModified by Organizat ion Details LastModified Time How many times per week do you consume alcohol? 1-2 times per week Information not available 01/03/2024 Do you or have you ever used smokeless tobacco? Never used smokeless tobacco [email or web address] Information not available 10/16/2019 Are you currently employed? Yes [email or web address] Information not available 03/24/2022 Do you have transportation difficulties? No [email or web address] Information not available 03/24/2022 Are you able to care for yourself? Yes [email or web address] Information n ot available 03/24/2022 Do you have difficulty dressing or bathing? No Information not available 03/24/2022 Do you or have you ever used e-cigarettes or vape? Current user of electronic cigarettes Information not available 01/03/2024 What is your exercise level? None [email or web address] Information not available 10/16/2019 Do you use any illicit or recreational drugs? No [email or web address] Information not available 03/24/2022 Do you or have you ever used any other forms of tobacco or nicotine? No [email or web address] Information not available 03/24/2022 What is your level of alcohol consumption? Occasional [email or web address] Information not available 10/16/2019 What is your status? Not [email or web address] Information no t available 03/24/2022 Are you able to walk? YESWOREST [email or web address] Information not available 10/16/2019 Do you have difficulty doing errands alone? 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 [id number] Information not available 01/03/2024 Do you have difficulty concentrating, remembering or making decisions? No [email or web address] Information no t available 03/24/2022 Family History Relationship Description Onset Age of this Age Resolved Age Notes LastModified by Organization Details LastModified Time Father Diabetes mellitus Not available 2019 09:05:55 Mother Cerebrovascu lar accident [email or web address] Not available 15:21:07 Medical History No medical history recorded. Gynecological History Statement/Question Response Last Annual Exam/Provider 09/23/2014 star Ayala Date of Last Colonoscopy Date of Last Mammogram Most Recent Bone Density Menses Monthly N Date of Last Pap Smear 09/23/2014 Current Control Method Tubal Ligat ion LMP Unknown Hormone Replacement Therapy N Obstetrics History GPAL:G 2 P 2 0 0 2 Type Value Full Term 2 Living 2 Total 2 Immunizations Vaccine Type Date Status Note Provider Nam e and Address Organization Details Recorded Time COVID-19, mRNA, LNP-S, PF, 30 mcg/0.3 mL dose 01/20/2021 completed Cally Stears null, [place] - [facility] 01/03/2024 15:49:48 COVID-19, mRNA, LNP-S, PF, 30 mcg/0.3 mL dose 02/25/2021 completed Cally Stears null, [place] - [facility] 01/03/2024 15:49:48 Tdap 07/21/2010 completed Cally Stears null, [place] - [facility] 01/03/2024 15:49:48 Past Encounters Encounter ID Performer Location Encounter Start Date Encounter Closed Date Diagnosis/Indication Diagnosis SNOMED-CT Code Diagnosis ICD10 Code Diagnosis Note [id number] [facility] [address] [place] [address] 06/11/2006 00:00:00 [id number] [facility] [address] [place] [address] 11/15/2006 00:00:00 [id number] [facility] [address] [place] [id number] 09/23/2014 00:00:00 [id number] [facility] [address] [place] [address] 11/24/2014 00:00:00 [id number] [facility] [address] [place] [address] 11/24/2014 00:00:00 [id number] DANNY [place] TELEVISION INSPECTOR [address] [place] [address] YESSICA Hagen [address] 10/16/2019 15:07:20 10/16/2019 16:13:34 Menopausal symptom [id number] N95.1 Thyroid di sorder screening [id number] Z13.29 Cigarette smoker [id number] F17.283 [id number] Andre Antunez PA-C [address] YESSICA Hagen [phone] 03/24/2022 10:26:03 03/24/2022 12:01:16 Influenza-like illness [id number] B34.9 Upper resp iratory infection [id number] J06.9 changes in taste and smell, RO COVID with PCR. Discussed supportive care with patient. Advised to drink plenty of fluids and fluids containing electrolyt es. Try to get plenty of rest. Can take OTC pain medication such as tylenol or ibuprofen (dosed based on weight for pediatric patients) as needed to relieve fever, headache, or body aches. If patient should get worse call clinic or go to emergency room. Discussed expected course and cautioned signs and sxs to seek further treatment. Chest discomfort [id number] R07.89 No concerning changes on EKG in office. strict ER precaution s given. [id number] Andre Antunez PA-C [address] [place] H[place] [phone] 07/05/2022 13:38:19 07/05/2022 15:11:46 Influenza-like illness [id number] B34.9 Influenza caused by Influenza B virus [id number] J10.1 Discussed supportive care with patient. Advised to drink plenty of fluids and fluids containing electrolyt es. Try to get plenty of rest. Can take OTC pain medication such as tylenol or ibuprofen (dosed based on weight for pediatric patients) as needed to relieve fever, headache, or body aches. If patient should get worse call clinic or go to emergency room. Discussed expected course and cautioned signs and sxs to seek further treatment. [id number] Dennispilar Ruvalcaba [address] [address] 01/03/2024 15:35:21 01/03/2024 16:37:40 Influenza caused by Influenza B virus [id number] J10.1 no sign of a bacterial infection. likely viral. viruses can take 7-14 days to run their course. nasal saline and bulb syringe to remove nasal drainage to help with congestion . monitor temp. Tylenol or Motrin as needed for pain or fever. encourage fluids, water, Gatorade, power aide, Pedialyte if infant/tod dler/child warm salt water gargles warm fluids sore throat lozenges sleep elevated humidifier /vaporizer follow up immediatel y for new or worsening symptoms or no noticeable improvemen t over the next 48-72 hours Streptococ loulou sore throat [id number] J02.0 contact precaution [id number] Dennispilar Ruvalcaba APRN [address] [address] 02/25/2024 10:37:21 02/25/2024 11:39:57 COVID-19 [id number] U07.1 no sign of a bacterial infection. likely viral. viruses can take 7-14 days to run their course. nasal saline and bulb syringe to remove nasal drainage to help with congestion . monitor temp. Tylenol or Motrin as needed for pain or fever. encourage fluids, water, Gatorade, power aide, Pedialyte if infant/tod dler/child warm salt water gargles warm fluids sore throat lozenges sleep elevated humidifier /vaporizer follow up immediatel y for new or worsening symptoms or no noticeable improvemen t over the next 48-72 hours Health Concerns Section Related Observation LastModified by Organization Detai ls LastModified Time None Recorded Concern Status LastModified by Organization Details LastModified Time None Recorded Advance Directives Directive N: Payers Insurance Date Sequence Insurance Name Policy Number Policy Brown Covered Member ID Brown Member ID Guarantor Name 03/04/2024 1 [employer] [facility] (MEDICAID [facility] Brit Wyman [id number] Brit Wyman 02/25/2024 [id number] [id number] [employer] (MEDICAID) Brit Wyman [id number] Brit Wyman Notes Date Note Type Note Provider Name and Address Organization Details Recorded Time 10/16/2019 text/html Menopausal SymptomsReported bypatient.Onset/Timing :1-6 months Quality:hot flashes 4-8 times/day;night sweats 4-8 times/night;decreased libido;sleep issues;mood changes;affects quality of life Severity:severe; interferes with sexual activity Duration:intermittent Context:menses infrequent (pt states no menses for over 6 year); no menses for over 1 year; current contraception: (Tubal Ligation) Alleviating Factors:none Aggravating Factors:poor sleep; stress Associated Symptoms:irritability; loss of libidoNotes:Brit is a pleasant 49 y/o presenting to discuss menopausal s/s. Her is with her.She hasn't had menses for >5 years. 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 She sees Dr. Hood.She states she has family h/o CVD. She also has hyperlipidemia. She continues to smoke.Her reports a recent incident of Brit having slurred speech, facial drooping, and confusion. She did not seek care.We had a lengthy discussion regarding her s/s and treatment options. I reviewed the risks of HRT and explained that it is contraindicated in someone with significant CVD and h/o TX. I reviewed other more natural options with her, i.e. soy, black cohosh, St. lay wort, SSRIs. She is interested in trying an SSRI, however, I suggested she check with Dr. Hood d/t the increased bleeding risk in someone on Plavix and ASA. She verb agreement.I reviewed causes of decreased libido with she and her .She will f/u for AWE. Sridevi Magallanes, [employer]ELDING EQUIP[employer] SALES REPRESENTATIVE [address], [place], [address], [place] - [facility] 10/16/2019 17:02:02 03/24/2022 text/html Brit is a52 y ear old female here with congestion, cough, runny nose, headaches, body aches SOB, nausea, and vomiting. sxs for 3-4 days.no taste or smell for a few days.chest congestion, heaviness in chest. hx of MInasal congestionsick of stomachlittle SOB, mostly with exertion or coughing. relieved with rest.TX 2 years agono known sick contactscoughing mostly dry and all day longDenies fever, sore throat and diarrheaPt denies chest pain, difficulty eating or drinking, changes in bathroom habits, syncope/presyncope, or any other concerns. Andre Antunez PA-C [address], [place], [address], [facility] - [facility] 03/24/2022 12:50:23 07/05/2022 text/html Brit is a 52 year old female here with a cough, runny nose, diarrhea, and body aches that started Sunday. Adequate hydration with appropriate voids. Breathing has been adequate. denies fevers.Pt denies chest pain, SOA, difficulty eating or drinking, changes in bathroom habits, syncope/presyncope, or any other concerns. 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 Roman Ruvalcaba APRN [address], [place], [address], [facility] - [facility] 01/03/2024 16:49:46 02/25/2024 text/html 54 yr old female presents for sore throat and congestion. Has had three positive tests for covid. Roman Ruvalcaba APRN [address], [place], [address], [place] - [facility] 02/25/2024 11:25:23 OBGyn Episode No OBEpisode recorded.
[2024-10-08 12:16] LABS: Hematocrit 39.1 % (37.0-47.0); Hemoglobin 12.4 g/dL (12.2-16.2); Immature Granulocytes % 0.1 %; Mean Corpuscular HGB Conc 31.7 g/dL (31.8-35.4); Mean Corpuscular Hemoglobin 27.8 pg (27.0-31.2); Mean Corpuscular Volume 87.7 fl (81-99); Nucleated Red Blood Cells % 0 %; Platelet Count 372 K/mm3 (142-424); Red Blood Count 4.46 M/mm3 (4.20-5.40); Red Cell Distribution Width-SD 42.9 fL; White Blood Count 6.7 K/mm3 (4.8-10.8)
[2024-10-08 12:39] LABS: Alanine Aminotransferase 10 U/L (12-78); Albumin Level 4.7 g/dl (3.5-5.0); Alkaline Phosphatase 63 U/L (38-126); Anion Gap 16.7 mEq/L (5-15); Aspartate Amino Transferase 21 U/L (14-36); Bilirubin,Direct 0.3 mg/dl (0.0-0.4); Bilirubin,Indirect 0.3 mg/dL (0.0-0.9); Bilirubin,Total 0.6 mg/dl (0.2-1.3); Bilirubin,Unconjugated 0.3 mg/dL (0.0-1.1); Blood Urea Nitrogen 9 mg/dl (7-17); Calcium 10.0 mg/dl (8.4-10.2); Carbon Dioxide 26 mmol/L (22.0-30.0); Chloride 100 mmol/L (98-107); Cholesterol 214 mg/dl (140-200); Creatinine,Serum 0.70 mg/dl (0.52-1.04); Estimated Glomerular Filt Rate 88 ml/min (>60); GFR (African American) 106 ML/MIN (>60); Glucose 109 mg/dl (74-100); HDL Cholesterol 62 mg/dl (40-60); Magnesium 2.0 mg/dl (1.6-2.3); Potassium 4.7 mmoL/L (3.5-5.1); Sodium 138 mmol/L (136-145); Total Protein,Serum 7.7 g/dl (6.3-8.2); Triglycerides 87 mg/dl (30-150)
[2024-10-08 12:56] LABS: Free T4 (Free Thyroxine) 1.11 ng/dl (0.78-2.19)
[2024-10-08 13:10] LABS: Thyroid Stimulating Hormone 1.18 uIU/mL (0.465-4.68)
== END 2024-10-08 23:59 | disposition home or self-care (01) ==
LOC: LAB 11:56
PROVIDERS: PCP Nurse Practitioner Family; Visit Provider Nurse Practitioner Family
DX: I25.10 Atherosclerotic heart disease of native coronary artery without angina pectoris (principal); I10 Essential (primary) hypertension
CPT/HCPCS: 36415; 80048; 80061; 80076; 83735; 84439; 84443; 85025